=== PATIENT | male | born 1945 | race Caucasian/White ===

== ENCOUNTER 2020-04-30 09:40 | Emergency (ER) | payer MEDICARE, BC, SELFPAY ==
--- NOTE | 2020-04-30 | DI.US.S_ITS ---
PROCEDURE: US PERIPH VENOUS LOW EXTREM BI INDICATIONS: EDEMA TECHNIQUE: Real-time imaging, as well as color and pulse Doppler interrogation, were performed of the deep veins of both legs from the inguinal ligament to the popliteal fossa. COMPARISON: None. FINDINGS: Right: The common femoral, femoral and popliteal veins are normally compressible, and free of intraluminal thrombus. Color and pulse Doppler demonstrate normal phasic intravascular flow. There is normal augmentation response to distal compression maneuver. Left: The common femoral, femoral and popliteal veins are normally compressible, and free of intraluminal thrombus. Color and pulse Doppler demonstrate normal phasic intravascular flow. There is normal augmentation response to distal compression maneuver. IMPRESSION: No evidence of DVT in visualized bilateral lower extremity veins. Dictated by: Paul London M.D. on 04/30/2020 at 10:43 Approved by: Paul London M.D. on 04/30/2020 at 10:43
[2020-04-30 09:55] VITALS: BP 147/68; PULSE 89; RESP 18; TEMP 36.2; O2SAT 99; BMI 38.0
--- NOTE | 2020-04-30 09:58 | PC.NURSE ---
Pt had back surgery 6 days ago,pt concerned that he has blood clots in bilateral lower extremities due to swelling. Pt denies pain,denies SOB.
--- NOTE | 2020-04-30 10:06 | ED.EXTPRO ---
HPI - Extremity Problem General Chief complaint: Extremity Problem,Nontraumatic Stated complaint: spine surgey last monday/feet swelling/ Time Seen by Provider: 04/30/20 09:44 Source: patient Mode of arrival: Ambulatory Limitations: no limitations History of Present Illness HPI Narrative: Patient is a 74-year-old male. Has a history of coronary artery disease but does not carry diagnosis of CHF who underwent a lumbar laminectomy within the past 10 days an outside facility. States that his symptoms seem to be improving however last night he started noticing swelling in bilateral lower extremities. He is not having chest pain or shortness of breath. He does have some residual numbness in his lower extremities because of his radiculopathy and also neuropathy secondary to diabetes. He does not feel like this is getting worse. No fevers. No urinary symptoms. He contacted his primary doctor told him to come the emergency department secondary to concerns about blood clots. Related Data Home Medications Medication Instructions Recorded Confirmed aspirin 81 mg PO QDAY #0 01/11/17 canagliflozin [Invokana] 300 mg #0 01/11/17 carvedilol [Coreg] #0 01/11/17 rosuvastatin [Crestor] 20 mg PO QDAY #0 01/11/17 tamsulosin [Flomax] #0 01/11/17 Previous Rx's Medication Instructions Recorded hydrocodone-acetaminophen [[place]] 1 - 2 tab PO Q6HP PRN #20 tab 03/04/17 furosemide [Lasix] 20 mg PO DAILY 5 Days #5 tab 04/30/20 Allergies Allergy/AdvReac Type Severity Reaction Status Date / Time codeine [CODEINE] Allergy Intermediate DIZZY Unverified 07/19/17 12:34 amoxicillin [From AUGMENTIN] Allergy Unknown Unverified 07/19/17 12:34 clavulanic acid Allergy Unknown Unverified 07/19/17 12:34 [From AUGMENTIN] Review of Systems Constitutional Constitutional: Denies fever(s) Cardiovascular Cardiovascular: Denies chest pain, Denies dyspnea and Denies dyspnea on exertion Respiratory Respiratory: Denies dyspnea and Denies dyspnea on exertion Gastrointestinal Gastrointestinal: Denies abdominal pain Genitourinary Genitourinary: Denies dysuria Genitourinary: Denies dysuria Musculoskeletal Musculoskeletal: Denies arthralgias and Denies myalgias Comments: Bilateral lower extremity swelling Integumentary/Breasts Skin/Breast: Denies rash Neurologic Comments: Neuropathy which is not Hematologic/Lymphatic On Anticoagulants: No Allergic/Immunologic Allergic/Immunologic: Denies urticaria Patient History Medical History Coronary artery disease Diabetes Social History Smoking Status: Former smoker Smoking Status: Former smoker alcohol intake frequency: 0-2 drinks per day Substance Use Type: does not use Exam Initial Vital Signs Initial Vital Signs: Vital Signs Temperature 97.1 F L 04/30/20 09:55 Pulse Rate 89 04/30/20 09:55 Respiratory Rate 18 04/30/20 09:55 Blood Pressure 147/68 H 04/30/20 09:55 Pulse Oximetry 99 04/30/20 09:55 Const General: cooperative, comfortable and well developed Limitations: mental status not altered HENMT Head: normal to inspection and normocephalic Resp Effort & Inspection: normal respiratory effort Auscultation: clear to auscultation bilaterally Cardio Rate: regular rate Rhythm: regular rhythm Pulses: dorsalis pedis present bilaterally Skin Lesions: no lesions Rashes: no rashes Neuro General: patient alert, patient awake and patient oriented x3 Cognition: normal cognition Speech: speech normal Extrem General: edema (1+ pitting edema bilateral lower extremities to knees) Psych Appearance: grossly normal and well kempt Course Orders Ordered: ED Orders 04/30/20 10:23 Basic Metabolic Panel Stat Complete Blood Count AUTO DIFF Stat Vital Signs Vital signs: Vital Signs - 8 hr 04/30/20 09:55 Temperature 97.1 F L Pulse Rate 89 Respiratory Rate 18 Blood Pressure 147/68 H Pulse Oximetry 99 MDM - Extremity (Nontraumatic) Lab Data Result diagrams: 04/30/20 10:23 04/30/20 10:23 Labs: Lab Results 04/30/20 04/30/20 Range/Units 10:23 10:23 WBC 7.8 (4.5-11.0) X10^3/uL RBC 5.08 (4.5-5.9) X10^6/uL Hgb 13.5 (13.5-17.5) g/dL Hct 41.9 (41-53) % MCV 82.4 (80-100) fL MCH 26.6 (26-34) PG MCHC 32.3 (30-36) % RDW 16.4 H (11.6-14.8) % Plt Count 141 L (150-400) X10^3/uL Neut % (Auto) 65.7 (50-75) % Lymph % (Auto) 19.8 L (25-40) % [place] % (Auto) 5.9 (3-14) % Eos % (Auto) 7.7 H (2-4) % Baso % (Auto) 0.9 (0-2) % Neut # (Auto) 5100 (2686-0630) /uL Lymph # (Auto) 1500 (4323-9358) /uL [place] # (Auto) 500 (0-900) /uL Eos # (Auto) 600 H (0-450) /uL Baso # (Auto) 100 (0-100) /uL Sodium 133 L (137-145) mmol/L Potassium 4.3 (3.4-5.1) mmol/L Chloride 101 (98-107) mmol/L Carbon Dioxide 25 (22-32) mmol/L BUN 23 H (9-20) mg/dL Creatinine 0.85 (0.66-1.25) mg/dL Estimated GFR > 60.0 (>60) mL/min BUN/Creatinine Ratio 27.1 H (6-22) Glucose 267 H (80-110) mg/dL Calcium 9.2 (8.4-10.2) mg/dL Imaging Data US - DVT: Radiologist's Impression: Negative bilateral DVT ultrasound MDM Narrative Medical decision making narrative: Patient's kidney function is unremarkable. He does have an elevated glucose and I did discuss this with him. He is going to contact his primary doctor about changing any of his oral diabetes medications. His physical exam is not consistent with cellulitis. He does not have DVTs based on the ultrasound. No fevers. Clinically does not have heart failure nor does he have a diagnosis of heart failure. I had a long discussion with him regarding swelling and standing and sitting and other things he can do to try to help with this. He does have compression stockings at home. I will send a prescription for Lasix however he is going to hold on this to see how his swelling progresses or gets better over the next couple days. He was given return precautions and follow-up instructions. He expressed understanding and agreement. Discharge Plan Departure Patient Disposition: Home Clinical Impression: Edema of both lower legs Instructions: DI for Peripheral Edema -- Bilateral Activity Restrictions/Additional Instructions: Recommend that you contact your primary doctor and also your operative surgeon to discuss your visit today. Continue to wear the compression stockings and keep her feet elevated like we discussed. Return to the emergency department for any shortness of breath or worsening symptoms. A prescription for Lasix was sent to [facility] pharmacy on [facility]. Start taking this if her symptoms worsen over the next couple days. Prescriptions: New furosemide [Lasix] 20 mg tablet 20 mg PO DAILY 5 Days Qty: 5 RF: 0 No Action aspirin 81 MG tablet,delayed release (DR/EC) 81 mg PO QDAY Qty: 0 RF: 0 canagliflozin [Invokana] 100 mg tablet 300 mg Qty: 0 RF: 0 carvedilol [Coreg] 3.125 mg tablet Qty: 0 RF: 0 tamsulosin [Flomax] 0.4 MG capsule,extended release 24hr Qty: 0 RF: 0 rosuvastatin [Crestor] 20 MG tablet 20 mg PO QDAY Qty: 0 RF: 0 hydrocodone-acetaminophen [[place]] 5 MG/325 MG tablet 1 - 2 tab PO Q6HP PRNQty: 20 RF: 0 Referrals: Ray Fleming MD [Primary Care Provider] -
[2020-04-30 10:34] LABS: Add Manual Diff / Slide Review NO; Basophils Absolute Auto 100 /uL (0-100); Basophils Percent Auto 0.9 % (0-2); Eosinophils Absolute Auto 600 /uL (0-450); Eosinophils Percent Auto 7.7 % (2-4); Hematocrit 41.9 % (41-53); Hemoglobin 13.5 g/dL (13.5-17.5); Lymphocytes Absolute Auto 1500 /uL (1100-4500); Lymphocytes Percent Auto 19.8 % (25-40); Mean Corpuscular HGB Conc 32.3 % (30-36); Mean Corpuscular Hemoglobin 26.6 PG (26-34); Mean Corpuscular Volume 82.4 fL (80-100); Monocytes Absolute Auto 500 /uL (0-900); Monocytes Percent Auto 5.9 % (3-14); Neutrophils Absolute Auto 5100 /uL (1500-7000); Neutrophils Percent Auto 65.7 % (50-75); Platelet Count 141 X10^3/uL (150-400); Red Blood Cell Count 5.08 X10^6/uL (4.5-5.9); Red Cell Distribution Width 16.4 % (11.6-14.8); White Blood Cell Count 7.8 X10^3/uL (4.5-11.0)
[2020-04-30 10:45] LABS: BUN Creatinine Ratio 27.1 (6-22); Blood Urea Nitrogen 23 mg/dL (9-20); Calcium 9.2 mg/dL (8.4-10.2); Carbon Dioxide 25 mmol/L (22-32); Chloride 101 mmol/L (98-107); Estimated Glomerular Filt Rate > 60.0 mL/min (>60); Glucose 267 mg/dL (80-110); HEMOLYSIS < 15 (0-50); Potassium 4.3 mmol/L (3.4-5.1); Sodium 133 mmol/L (137-145)
[2020-04-30 11:36] VITALS: BP 136/76; PULSE 85; RESP 16; O2SAT 98
== END 2020-04-30 11:36 | disposition home or self-care (01) ==
PROVIDERS: Emergency Provider Emergency Medicine; Family Provider Internal Medicine; PCP Internal Medicine
DX: R60.0 Localized edema (principal); R20.0 Anesthesia of skin; E11.40 Type 2 diabetes mellitus with diabetic neuropathy, unspecified; Z79.82 Long term (current) use of aspirin
CPT/HCPCS: 36415; 80048; 85025; 93970; 99283; 99284

== ENCOUNTER 2022-10-16 18:43 | Emergency (ER) | payer MEDICARE, BC, SELFPAY ==
[2022-10-16 19:08] VITALS: BP 121/73; PULSE 85; RESP 16; TEMP 36.8; O2SAT 96; BMI 35.9
[2022-10-16 21:09] VITALS: BP 130/62; PULSE 90; RESP 16; O2SAT 98
--- NOTE | 2022-10-16 21:18 | ED_ITS ---
HPI - Extremity Injury (Lower) General Chief Complaint: Extremity Injury, Lower Stated Complaint: R/ Knee infection T-11 Time Seen by Provider: 10/16/22 21:18 Source: patient Mode of arrival: Ambulatory History of Present Illness HPI Narrative: Patient is a 76-year-old male who several days ago tripped and fell and sustained an abrasion to his right knee. Has had increased in redness since that time. He is still able to walk and bend his knee. He stated that he received a prescription from an outside provider earlier today however was sent to the pharmacy on [facility] and he is not going to be able to get there until tomorrow afternoon. He stated that he was prescribed Bactrim. Related Data Home Medications Medication Instructions Recorded Confirmed aspirin 81 mg tablet,delayed 81 mg PO QDAY ##0 01/11/17 release canagliflozin 100 mg tablet 300 mg ##0 01/11/17 (Invokana) carvedilol 3.125 mg tablet (Coreg) ##0 01/11/17 rosuvastatin 20 mg tablet (Crestor) 20 mg PO QDAY ##0 01/11/17 tamsulosin 0.4 mg capsule (Flomax) ##0 01/11/17 Previous Rx's Medication Instructions Recorded hydrocodone 5 mg-acetaminophen 325 1 - 2 tab PO Q6HP PRN #20 tabs 03/04/ mg tablet ([place]) Allergies Allergy/AdvReac Type Severity Reaction Status Date / Time codeine [CODEINE] Allergy Intermediate DIZZY Verified 10/16/22 21:28 amoxicillin [From AUGMENTIN] Allergy Unknown Verified 10/16/22 21:28 clavulanic acid Allergy Unknown Verified 10/16/22 21:28 [From AUGMENTIN] Review of Systems Musculoskeletal Musculoskeletal: Reports system reviewed and no additional complaints, except as documented Integumentary/Breasts Skin/Breast: Reports system reviewed and no additional complaints, except as documented Patient History Medical History Coronary artery disease Diabetes Social History Smoking Status: Former smoker Smoking Status: Former smoker alcohol intake frequency: 0-2 drinks per day Substance Use Type: does not use Exam Initial Vital Signs Initial Vital Signs: Vital Signs Temperature 98.3 F 10/16/22 19:08 Pulse Rate 85 07/09/23 19:08 Respiratory Rate 16 10/16/22 19:08 Blood Pressure 121/73 10/16/22 19:08 Pulse Oximetry 96 10/16/22 19:08 Oxygen Delivery Method Room Air 10/16/22 19:08 Skin Other: Patient does have a irregular abrasion on the anterior aspect of the right knee. There is surrounding erythema. No drainage. No fluctuance. Extrem Other: Patient is able to flex and extend at the right knee in his able to walk. Course Orders Ordered: Discontinued Medications Trimethoprim/Sulfamethoxazole (Trimeth/Sulfa 160/800 (Ds) Tablet) 1 tab PO NOW ONE Stop: 10/16/22 21:20 Last Admin: 10/16/22 21:29 Dose: 1 tab Documented By: NERISSA Vital Signs Vital signs: Vital Signs - 8 hr 10/16/22 21:09 Pulse Rate 90 Respiratory Rate 16 Blood Pressure 130/62 Pulse Oximetry 98 Oxygen Delivery Method Room Air MDM - Extremity Injury (Lower) MDM Narrative Medical decision making narrative: Patient is nontoxic. He is an obvious cellulitis to the anterior portion his right knee. Low suspicion for fracture. Low suspicion for septic joint. Plan will be is to give him 1 dose of Bactrim here in the emergency department. He has a prescription already waiting for him at the pharmacy when he returns back to the [place] on which he lives. He can start taking that prescription tomorrow. He tolerated the oral antibiotic here in the ER without issue. Discharge Plan Departure Patient Disposition: Home Clinical Impression: Cellulitis Instructions: DI for Cellulitis -- Adult Activity Restrictions/Additional Instructions: I do recommend that you take the antibiotics that have been prescribed you as directed. Keep all of your scheduled medical appointments. Return to the emergency department for new or worsening symptoms. Prescriptions: No Action aspirin 81 MG tablet,delayed release (DR/EC) 81 mg PO QDAY Qty: 0 canagliflozin [Invokana] 100 mg tablet 300 mg Qty: 0 carvedilol [Coreg] 3.125 mg tablet Qty: 0 tamsulosin [Flomax] 0.4 MG capsule,extended release 24hr Qty: 0 rosuvastatin [Crestor] 20 MG tablet 20 mg PO QDAY Qty: 0 hydrocodone-acetaminophen [[place]] 5 MG/325 MG tablet 1 - 2 tab PO Q6HP PRNQty: 20 0RF Referrals: Omkar Mcintosh MD [Primary Care Provider] - Stand Alone Forms: Patient Portal/API
[2022-10-16] MEDS: TRIMETH/SULFA 160/800 (DS) TABLET 1 TAB PO (21:29)
== END 2022-10-16 21:38 | disposition home or self-care (01) ==
PROVIDERS: Emergency Provider Emergency Medicine; Family Provider Internal Medicine; PCP Internal Medicine
DX: L03.115 Cellulitis of right lower limb (principal)
CPT/HCPCS: 99283